=== PATIENT | female | born 1945 | race Caucasian/White ===

== ENCOUNTER 2020-02-13 15:48 | Outpatient (CLI) | payer MEDICARE, OTHER, SELFPAY ==
--- NOTE | 2020-02-13 16:01 | MR_ITS ---
WS: [id number] MRI LUMBAR SPINE NONCONTRAST TECHNIQUE: Sagittal T1, T2 and STIR imaging. Axial T1 and T2 imaging. CLINICAL INFORMATION: POSTLAMINECTOMY COMPARISON: December 01, 2017 FINDINGS: Lumbar scoliosis convex right. New compression involving the T12 superior endplate with edema. Loss o f approximately 20% vertebral body height. Minimal retropulsion posterior superior cortex with slight effacement of the ventral thecal sac. No significant central canal stenosis at this level. Pedicles appear intact. Disc space narrowing throughout the lumbar spine with endplate degenerative changes progressed slight ly since 2018. Slight retrolisthesis L2 on L3 and L3 on L4. L1-L2: Mild disc bulging with narrowing of the subarticular recess. Moderate facet arthropathy. Mild right and no significant left foraminal narrowing. L2-L3: Slight retrolisthesis. Mild disc bulging with impingement on the left subarticular recess and traversing L3 nerve roots. Moderate facet arthropathy. Mild left and no significant right foraminal n arrowing. L3-L4: Mild disc bulging with slight narrowing of the subarticular recess bilaterally. Impingement on the left subarticular recess. Moderate left and mild right bony foraminal narrowing. Prior laminecto my defects. Moderate facet arthropathy. L4-L5: Mild disc bulging. Prior laminectomy defects. Moderate facet arthropathy. Mild left and no sig nificant right foraminal narrowing. L5-S1: Central and right pericentral disc protrusion impinges the right subarticular recess and trave rsing right S1 nerve root. Recommend correlation for S1 nerve root symptoms. Mild to moderate right f oraminal narrowing. Left foramen is patent. Moderate facet arthropathy. Polycystic kidney disease similar in appearance. Hemangiomas thoracic spine unchanged. MR/MR lumbar spine wo con* [id number] IMPRESSION: 1. New interval compression of the T12 superior endplate with loss of approxim ately 20% vertebral body height and mild edema consistent with subacute karlee rajan. No significant retropulsion. 2. Mild progression of degenerative disc disease with disc space narrowing thr oughout the lumbar spine compared to 2018. 3. Otherwise no significant change from previous. 4. Prior decompressive laminectomies at L3-L4 L4-L5. 5. No high-grade central canal stenosis. 6. Mild central canal stenosis L1-2 and L2-3 with narrowing of the subarticula r recess bilaterally unchanged. 7. Multilevel bony foraminal narrowing worse at left L3-4, left L4-5, and righ t L5-S1. 8. Right subarticular disc protrusion L5-S1 impinges the right S1 nerve root. 9. Polycystic kidneys bilaterally. 10. Moderate central canal stenosis in the cervical spine visualized on the sc out imaging at C3-C6. Recommend further evaluation with dedicated cervical spin e MRI. This appears unchanged since 2018
--- NOTE | 2020-02-13 16:02 | XR_ITS ---
WS: [id number] LUMBAR SPINE FLEXION AND EXTENSION TECHNIQUE: 3 views of the lumbar spine: Lateral neutral, flexion, and extension views. CLINICAL INFORMATION: POST LAMINECTOMY SYN COMPARISON: November 23, 2017 FINDINGS: Reversal normal lumbar lordosis. Multilevel degenerative disc disease with disc space narrowing throu ghout the lumbar spine. Disc space narrowing worse at L2-L3 L3-L4 and L4-L5. Chronic compression of t he L3 vertebral body is slightly progressed. Disc space narrowing L2-3 and L3-L4 has progressed since 2018. Increased compression of the inferior endplate L2. New biconcave compression with anterior wedging at T12 with loss of approximately 60% vertebral body height is new since 2018. XR/XR lumbar spine f/e only [id number] IMPRESSION: 1. No instability on flexion-extension. 2. Biconcave compression at T12 with loss of approximately 60% vertebral body height appears new since 2018. 3. Mild progression of the compression at L3 and inferior endplate L2. 4. Disc space narrowing worse at L2-L3 L3-L4 progressed in the interval.
== END 2020-02-13 15:49 | disposition home or self-care (01) ==
LOC: RADWPI 15:56
PROVIDERS: Family Provider Internal Medicine; PCP Internal Medicine; Visit Provider Anesthesiology Pain Medicine
DX: M96.1 Postlaminectomy syndrome, not elsewhere classified (principal); S22.080A Wedge compression fracture of T11-T12 vertebra, initial encounter for closed fracture; M51.36 Other intervertebral disc degeneration, lumbar region; M48.061 Spinal stenosis, lumbar region without neurogenic claudication; M51.27 Other intervertebral disc displacement, lumbosacral region; Q61.3 Polycystic kidney, unspecified; X58.XXXA Exposure to other specified factors, initial encounter
CPT/HCPCS: 72120; 72148